=== PATIENT | female | born 1965 | race Caucasian/White ===

== ENCOUNTER 2016-10-02 08:55 | Day surgery (SDC) | payer BC ==
[~2016-10-02] VITALS: Ht 157.5 cm
--- NOTE | 2016-10-04 07:43 | OR ---
ADMIT: 10/02/2016 RM/LOC: [facility] MR#: [id number] [address] [address] [place], [place] Michelle [id number] [place] [address] Operative/Delivery Room Report SEX: F AGE: 50 : 1965 SURGERY DATE: 10/02/2016 SURGEON: Darleen Betts MD FLOOR WINDER: None. PREPROCEDURE DIAGNOSES: 1. Bilateral sacroiliac join dysfunction. 2. Low back pain. POSTPROCEDURE DIAGNOSES: 1. Bilateral sacroiliac join dysfunction. 2. Low back pain. PROCEDURE PERFORMED: Bilateral sacroiliac joint injection. INDICATIONS FOR PROCEDURE: ANESTHESIA: Local without sedation. ESTIMATED BLOOD LOSS: Zero. COMPLICATIONS: None immediately evident. DESCRIPTION OF PROCEDURE: After the patient was seen in the preoperative area, vitals signs were taken. Prior to the procedure, the risks, benefits, and alternative therapies were discussed at length. Patient consent was obtained and updated. The patient was taken to the fluoroscopy suite and placed on the fluoroscopy table in the prone position. Pressure points were padded to comfort, monitors applied, and a timeout performed. C-arm was brought in to identify the right SI joint. Lidocaine plain 1%, approximately 2 mL, was used to anesthetize the skin and underlying subcutaneous tissue. A 3.5-inch 22-gauge curved-tip needle was then advanced through the anesthetized skin and placed inside the inferior portion of the SI ADMIT: 10/02/2016 RM/LOC: [facility] MR#: [id number] [address] [place] [address] [place] [address] Operative/Delivery Room Report SEX: F AGE: 50 : 1965 joint. Isovue-300 was injected into the SI joint and showed good spread into the SI joint. After correct placement was confirmed, 5 mL of 0.25% Marcaine and 40 mg of Depo-Medrol were injected. The procedure was then repeated on the left side. The patient tolerated the procedure well without any complications. The patient was then brought to PACU where she recovered nicely. PLAN: The patient was examined after 20 minutes and had 80% reduction of pain. Discharge instructions were given, followup scheduled. The patient was discharged home with a guard driver. Darleen Betts MD/ sang JOB #: [id number] CC: Darleen Betts, Attending Physician Geronimo Caban, Family Physician
== END 2016-10-02 10:20 | disposition home or self-care (01) ==
LOC: SSS 08:55
PROC: 3E0U3BZ Introduction of Anesthetic Agent into Joints, Percutaneous Approach (ICD-10-PCS; principal; 2016-10-02)
PROC: 3E0U33Z Introduction of Anti-inflammatory into Joints, Percutaneous Approach (ICD-10-PCS; principal; 2016-10-02)
DX: M53.3 Sacrococcygeal disorders, not elsewhere classified (principal); I10 Essential (primary) hypertension; G89.29 Other chronic pain; M47.812 Spondylosis without myelopathy or radiculopathy, cervical region; M79.1 Myalgia; Z79.899 Other long term (current) drug therapy

== ENCOUNTER 2016-10-09 08:39 | Day surgery (SDC) | payer BC ==
[~2016-10-09] VITALS: Ht 157.5 cm
--- NOTE | 2016-10-11 08:34 | OR ---
ADMIT: 10/09/2016 RM/LOC: [facility] MR#: [id number] [address] [address] [place] [address] [address] [place] [id number] Operative/Delivery Room Report SEX: F AGE: 50 : 1965 SURGERY DATE: 10/09/2016 SURGEON: Darleen Betts MD PATENT ENGINEER: None. PREPROCEDURE DIAGNOSES: 1. Cervical facet syndrome. 2. Cervicalgia. 3. Chronic daily headache. POSTPROCEDURE DIAGNOSES: 1. Cervical facet syndrome. 2. Cervicalgia. 3. Chronic daily headache. PROCEDURE PERFORMED: Bilateral C2-C3, C3-C4, and C4-C5 facet cervical injection. INDICATIONS FOR PROCEDURE: ANESTHESIA: Local without sedation. ESTIMATED BLOOD LOSS: Zero. COMPLICATIONS: None immediately evident. DESCRIPTION OF PROCEDURE: After the patient was seen in the preoperative area, vitals signs were taken. Prior to the procedure, the risks, benefits, and alternative therapies were discussed at length. Patient consent was obtained and updated. The patient was taken to the fluoroscopy suite and placed on the fluoroscopy table in the prone position. Pressure points were padded to comfort, monitors applied, and a timeout performed. The patient's head was turned to the left side initially. The cervical region was prepared with ChloraPrep and sterile drape placed. C-arm fluoroscopy was then brought in to identify the facet joint of the C2-C3, C3-C4, and C4-C5 level on the right side. A 3.5-inch 22-gauge curved-tip spinal needle was used to access the facet joint. The spinal needle was then advanced and made contact with the superior articular facet at each level and then walked off the joint. Then 0.5 mL Isovue-300 was instilled at each level showing a good intraarticular spread. The patient then received 1 mL of 5 mg of Decadron and ADMIT: 10/09/2016 RM/LOC: [facility] MR#: [id number] [address] [address] [place] [address] [address] [place], [place] [id number] Operative/Delivery Room Report SEX: F AGE: 50 : 1965 0.25% of bupivacaine at each level. The procedure was repeated on the left side. At bilateral C2-C3, C3-C4, and C4-C5 level, her joints were reproductive of pain. The patient tolerated the procedure well and there were no complications. PLAN: The patient was examined after 20 minutes and had 80% reduction of pain, and increase in ROM from 15 degrees to 20 degrees of extension. Discharge instructions were given, followup scheduled. The patient was discharged home with a boat driver. Darleen Betts MD/ sang JOB #: [id number] CC: Darleen Betts, Attending Physician Geronimo Caban, Family Physician
== END 2016-10-09 10:35 | disposition home or self-care (01) ==
LOC: SSS 08:39
PROC: 3E0T3BZ Introduction of Anesthetic Agent into Peripheral Nerves and Plexi, Percutaneous Approach (ICD-10-PCS; principal; 2016-10-09)
PROC: 3E0T33Z Introduction of Anti-inflammatory into Peripheral Nerves and Plexi, Percutaneous Approach (ICD-10-PCS; principal; 2016-10-09)
PROC: BR14YZZ Fluoroscopy of Cervical Facet Joint(s) using Other Contrast (ICD-10-PCS; principal; 2016-10-09)
DX: G89.29 Other chronic pain (principal); M53.82 Other specified dorsopathies, cervical region; Z79.899 Other long term (current) drug therapy